=== PATIENT | female | born 1965 | race Caucasian/White ===

== ENCOUNTER 2024-03-26 00:31 | Emergency (ER) | payer OTHER ==
[~2024-03-26] VITALS: Ht 172.7 cm; Wt 54.5 kg
[2024-03-26] MEDS ORDERED: QUET200T PO (00:58)
[2024-03-26 01:10] VITALS: BP 113/64; PULSE 87; RESP 16; TEMP 98.4; O2SAT 97
[2024-03-26 01:46] LABS: BASOPHILS % (AUTO) 1.1 % (0.0-2.0); EOSINOPHILS % (AUTO) 4.3 % (1.0-6.0); HEMATOCRIT 32.8 % (36-46); HEMOGLOBIN 11.1 g/dL (12.0-16.0); LYMPHOCYTES # (AUTO) 1.8 K/uL (1.0-4.8); MEAN CORPUSCULAR HEMOGLOBIN 30.4 pg (26.0-34.0); MEAN CORPUSCULAR HGB CONC 33.9 G/dL (31.0-37.0); MEAN CORPUSCULAR VOLUME 90 fL (80-100); MONOCYTES # (AUTO) 0.5 K/uL (0.1-1.0); MONOCYTES % (AUTO) 10.3 % (2.0-9.0); NEUTROPHILS # (AUTO) 2.2 K/uL (1.8-7.7); NEUTROPHILS % (AUTO) 46.3 % (40.0-70.0); PLATELET COUNT (AUTO) 263 K/uL (150-450); RED BLOOD CELL COUNT(AUTO) 3.67 MIL/uL (4.00-5.20); RED CELL DISTRIBUTION WIDTH 13.8 % (11.5-14.5); WHITE BLOOD COUNT (AUTO) 4.6 K/uL (4.5-11.0)
[2024-03-26 01:51] LABS: RBC MORPHOLOGY COMMENT ABNORMAL RBC MORPH
[2024-03-26 01:56] LABS: ANION GAP 8 mmol/L (8-16); CALCIUM, TOTAL 7.6 mg/dL (8.8-10.5); CARBON DIOXIDE 31 mmol/L (22-29); CHLORIDE 102 mmol/L (98-107); CREATININE 0.89 mg/dL (0.60-1.30); GLOMERULAR FILTR. RATE CALC > 60 mL/min (>60); GLUCOSE,RANDOM 107 mg/dL (70-110); POTASSIUM 3.6 mmol/L (3.5-5.1); SODIUM SERUM 141 mmol/L (136-145); UREA NITROGEN, BLOOD 15 mg/dL (7-18)
[2024-03-26 02:00] LABS: COVID AG,FIA SOURCE NASAL SWAB
[2024-03-26 02:02] LABS: ALCOHOL, BLOOD (SERUM) < 3 mg/dL (0-10)
[2024-03-26 02:08] LABS: SARS-COV2 (COVID) ANTIGEN,FIA Negative (Negative)
[2024-03-26] MEDS: QUEtiapine FUMARATE 100 MG TABLET PO ONE (02:08)
[2024-03-26] MEDS: OLANZapine 10 MG TABLET PO ONE (02:50)
[2024-03-26] MEDS: DiphenhydrAMINE HCL 25 MG CAPSULE PO ONE (02:50)
== END 2024-03-26 06:30 | disposition home or self-care (01) ==
LOC: EMS 00:31
DX: F32.9 Major depressive disorder, single episode, unspecified (principal); F22 Delusional disorders; D64.9 Anemia, unspecified; Z20.822 Contact with and (suspected) exposure to COVID-19
CPT/HCPCS: 99285; 87426; 80048; 85025; 36415; G0480